=== PATIENT | male | born 1975 | race Caucasian/White ===

== ENCOUNTER 2021-10-04 15:59 | Emergency (ER) | payer MEDICAID ==
[~2021-10-04] VITALS: Ht 175.3 cm; Wt 84.0 kg
[2021-10-04] MEDS ORDERED: FLUORESCEIN SODIUM 1MG/STRIP RIGHTEYE ONE (18:30)
[2021-10-04] MEDS ORDERED: TETRACAINE 0.5% OPHTH DROPS 4ML RIGHTEYE ONE (18:30)
[2021-10-04] MEDS ORDERED: ACET-2708 MT (19:51)
[2021-10-04] MEDS ORDERED: ERYT1OIN6 RIGHTEYE (19:51)
[2021-10-04 21:41] VITALS: BP 120/55
== END 2021-10-04 20:09 | disposition home or self-care (01) ==
LOC: ER 15:59
DX: S05.01XA Injury of conjunctiva and corneal abrasion without foreign body, right eye, initial encounter (principal); Y08.89XA Assault by other specified means, initial encounter; Y93.89 Activity, other specified; Y92.89 Other specified places as the place of occurrence of the external cause; Y99.8 Other external cause status; Z79.899 Other long term (current) drug therapy
CPT/HCPCS: 99283